=== PATIENT | female | born 1975 | race Caucasian/White ===

== ENCOUNTER 2016-09-27 18:57 | Emergency (ER) | payer MEDICAID ==
[~2016-09-27] VITALS: Wt 68.0 kg
[2016-09-27 19:07] VITALS: Wt 68.0 kg
[2016-09-27] MEDS ORDERED: ACET325T33 PO (19:56)
--- NOTE | 2016-09-27 20:06 | ERA ---
ER Documentation Chief Complaint Date/Time DATE: 09/27/16 TIME: 20:00 Chief Complaint cough/congestion/runny nose x 1 month HPI Patient is a 41-year-old female who presents complaining of cough with some yellow sputum production and sinus congestion 24-48 hours. Patient is roughly 2 months . Patient denies any abdominal pain, pelvic pain, urinary frequency, dysuria, hematuria, vaginal discharge, foul odor, headache, back pain , ear discomfort, pharyngitis. Patient has not taking any medications to relieve the symptoms. He has made the symptoms worse or better. ROS All systems reviewed and are negative except as per history of present illness. Medications Home Meds Active Scripts Acetaminophen* (Tylenol*) 325 Mg Tablet, 2 TAB PO Q6 Y for PAIN AND OR ELEVATED TEMP, #20 TAB Prov:ANGELY ARAGON PA-C 09/27/16 Allergies Allergies: Coded Allergies: No Known Drug Allergies (Verified Allergy, Unknown, 09/27/16) PMhx/Soc Medical and Surgical Hx: pt denies Surgical Hx Anesthesia Reaction: No Hx Neurological Disorder: No Hx Respiratory Disorders: Yes (ASTHMA) Hx Cardiac Disorders: No Hx Psychiatric Problems: No Hx Miscellaneous Medical Probl: No Hx Alcohol Use: No Hx Substance Use: No Hx Tobacco Use: No Smoking Status: Never smoker Physical Exam Vitals Vital Signs Date Time Temp Pulse Resp B/P Pulse Ox O2 Delivery O2 Flow Rate FiO2 09/27/16 19:07 100.0 102 20 119/69 99 Physical Exam Const: Healthy appearing 41-year-old female in no acute distress. Head: Atraumatic Eyes: Normal Conjunctiva ENT: Normal External Ears, Nose and Mouth. Neck: Full range of motion..~ No meningismus. Resp: Clear to auscultation bilaterally. Percussion clear and equal bilaterally Cardio: Regular rate and rhythm, no murmurs Abd: Soft, non tender, non distended. Normal bowel sounds Skin: No petechiae or rashes Back: No midline or flank tenderness Ext: No cyanosis, or edema Neur: Awake and alert Psych: Normal Mood and Affect Procedures/MDM Patient is a 41-year-old female who is roughly 2 months who presents complaining of a mild fever, cough with mild yellow to green sputum production, and sinus pressure. Patient's lung araiza are clear oropharynx clear nose is clear. At this time I do not think that there is endangerment of the airway, abdominal pain or vaginal discharge suggesting problems in the , or fever suggesting bacterial involvement. We will go ahead and treat the patient with Tylenol for fever control and symptom relief. Patient also has been taking nasal spray. Discussed with the patient that it is okay to use a local topical nasal spray for congestion relief. Advised the patient if symptoms worsen or continue to return to the emergency room immediately. I also advised the patient to follow-up with [facility] within the next 1-3 days. Departure Diagnosis: Primary Impression: Sinusitis Qualified Code: J01.10 - Acute non-recurrent frontal sinusitis Condition: Stable Patient Instructions: Sinusitis, No Abx Additional Instructions: Return to emergency department immediately if symptoms worsen or persist. Follow-up with [facility] within the next 1-3 days per ANGELY ARAGON PA-C Sep 27, 2016 20:06
[2016-09-27 20:08] VITALS: BP 128/62; PULSE 86; RESP 18; TEMP 99.3
== END 2016-09-27 20:08 | disposition home or self-care (01) ==
LOC: FTE 18:57
DX: O99.511 Diseases of the respiratory system complicating pregnancy, first trimester (principal); J01.10 Acute frontal sinusitis, unspecified; J45.901 Unspecified asthma with (acute) exacerbation; Z3A.08 8 weeks gestation of pregnancy
CPT/HCPCS: 99283

== ENCOUNTER 2016-10-11 20:43 | Emergency (ER) | payer MEDICAID ==
[~2016-10-11] VITALS: Ht 157.5 cm; Wt 70.1 kg
[~2016-10-11 20:43] MED LIST: ACET325T33 PO
[2016-10-11 20:47] VITALS: Ht 157.5 cm; Wt 70.1 kg
--- NOTE | 2016-10-12 01:08 | ERD ---
ER Documentation Chief Complaint Date/Time DATE: 10/12/16 TIME: 01:02 Chief Complaint fever x 4 days HPI This is a 41-year-old female presenting to the emergency department for fever, cough and headache 1 month. Patient is currently 10 weeks with last menstrual period 08/02/2016. Patient is a A0. Patient was previously seen by her primary care provider who prescribed her amoxicillin and promethazine. Patient states she has been on this medication for the past 3 days. Patient states she continues to have cough and fever. Patient also reports some right sided mid back pain and left lower quadrant pain that started today. No vaginal bleeding or pelvic cramping. Patient's last [facility] visit was 1 week ago and patient states an ultrasound was done at that time. Patient denies fever or chills. No nausea, vomiting or diarrhea. No dysuria or hematuria. ROS All systems reviewed and are negative except as per history of present illness. Medications Home Meds Active Scripts Acetaminophen* (Tylenol*) 325 Mg Tablet, 2 TAB PO Q6 Y for PAIN AND OR ELEVATED TEMP, #20 TAB Prov:ANGELY ARAGON PA-C 09/27/16 Allergies Allergies: Coded Allergies: No Known Drug Allergies (Verified Allergy, Unknown, 09/27/16) PMhx/Soc History of Surgery: Yes ( x3) Anesthesia Reaction: No Hx Neurological Disorder: No Hx Respiratory Disorders: Yes (ASTHMA) Hx Cardiac Disorders: No Hx Psychiatric Problems: No Hx Miscellaneous Medical Probl: No Hx Alcohol Use: No Hx Substance Use: No Hx Tobacco Use: No Smoking Status: Never smoker Physical Exam Vitals Vital Signs Date Time Temp Pulse Resp B/P Pulse Ox O2 Delivery O2 Flow Rate FiO2 10/11/16 20:47 98.9 88 17 123/64 98 Physical Exam Const: NAD, alert Head: Atraumatic Eyes: Normal Conjunctiva ENT: Normal External Ears, Nose and Mouth. Neck: Full range of motion..~ No meningismus. Resp: Clear to auscultation bilaterally Cardio: Regular rate and rhythm, no murmurs Abd: Soft, non tender, non distended. Normal bowel sounds Skin: No petechiae or rashes Back: No midline or flank tenderness. No CVA tenderness Ext: No cyanosis, or edema Neur: Awake and alert Psych: Normal Mood and Affect Procedures/MDM MDM: 41-year-old female presents emergency department for cough, headache and fever 1 month. Was previously prescribed amoxicillin and promethazine by primary care provider and has been on medications for about 3 days. Patient continues to have tactile fevers and cough at home. Patient is also having right-sided mid back pain and left lower quadrant abdominal pain at times. Denies any dysuria or hematuria. No vaginal bleeding or pelvic cramping. Offered to check patient's urine while in the ED. Upon reassessment, patient eloped. Departure Diagnosis: Primary Impression: Cough Condition: Stable DEE GILBERT NP Oct 12, 2016 01:08
== END 2016-10-12 | disposition left against medical advice (07) ==
LOC: FTE 20:43
DX: O99.89 Other specified diseases and conditions complicating pregnancy, childbirth and the puerperium (principal); R05 Cough; O99.511 Diseases of the respiratory system complicating pregnancy, first trimester; J45.909 Unspecified asthma, uncomplicated; Z3A.10 10 weeks gestation of pregnancy
CPT/HCPCS: 99282

== ENCOUNTER 2017-06-25 15:55 | Emergency (ER) | END 2017-06-25 17:10 | disposition home or self-care (01) ==